=== PATIENT | male | born 1980 | race Caucasian/White ===

== ENCOUNTER 2019-08-16 19:46 | Emergency (ER) | payer BC, OTHER ==
[~2019-08-16] VITALS: Ht 182.9 cm; Wt 111.4 kg
[2019-08-16 19:52] VITALS: BP 164/71
[2019-08-16] MEDS ORDERED: LIDO2SOL17 PO (20:03)
== END 2019-08-16 20:19 | disposition home or self-care (01) ==
LOC: M ED 19:46 → EDBD 19:46 → M ED 20:19
DX: R09.89 Other specified symptoms and signs involving the circulatory and respiratory systems (principal); K22.2 Esophageal obstruction; Z88.0 Allergy status to penicillin; Z88.8 Allergy status to other drugs, medicaments and biological substances; Z91.030 Bee allergy status